=== PATIENT | female | born 1985 | race Caucasian/White ===

== ENCOUNTER → 2016-12-23 | Outpatient (CLI) | payer SELFPAY | LOC: WI 10:22 | PROVIDERS: ATTEND Family Medicine | DX: R10.9 Unspecified abdominal pain (principal); R10.2 Pelvic and perineal pain; Z90.710 Acquired absence of both cervix and uterus | CPT/HCPCS: 76700; 76856 ==

== ENCOUNTER 2017-01-16 11:24 | Emergency (ER) | payer SELFPAY ==
[2017-01-16] MEDS ORDERED: ACETAMINOPHEN 325 MG TABLET PO ONE (11:37)
[2017-01-16] MEDS ORDERED: IBUPROFEN 600 MG TABLET PO ONE (12:00)
[2017-01-16] MEDS ORDERED: LIDOCAINE 5% (700 MG) TRANSDERMAL ADH..PATCH TP ONE ×3 (12:00→15:00)
--- NOTE | 2017-01-16 12:03 | ER Document Report ---
ED Medical Screen (RME) - General Chief Complaint: Abdominal Pain Stated Complaint: RIGHT FLANK/ABDOMINAL PAIN Notes: Patient presents with intermittent right flank pain for the past several years which generally resolves after application of heat to the area but has not resolved today. She recently saw her primary care doctor for the same concern and had an abdominal ultrasound done which was notably unremarkable. In triage today she appears to be in significant discomfort, hunched over and appears nauseated. I have greeted and performed a rapid initial assessment of this patient. A comprehensive ED assessment and evaluation of the patient, analysis of test results and completion of medical decision making process will be conducted by an additional ED providers. TRAVEL OUTSIDE OF THE [place] IN LAST 30 DAYS: No - Related Data Allergies/Adverse Reactions: acetaminophen [From Vicodin] Allergy (Verified 01/16/17 11:34) hydrocodone [From Vicodin] Allergy (Verified 01/16/17 11:34) latex Allergy (Verified 01/16/17 11:34) metronidazole Allergy (Verified 01/16/17 11:34) prednisone Allergy (Verified 01/16/17 11:34) Sulfa (Sulfonamide Antibiotics) Allergy (Verified 01/16/17 11:34) Past Medical History - Social History Chew tobacco use (# tins/day): No Frequency of alcohol use: None Drug Abuse: None Neurological Medical History: Reports: Hx Migraine Renal/ Medical History: Denies: Hx Peritoneal Dialysis Psychiatric Medical History: Reports: Hx Depression Past Surgical History: Reports: Hx Hysterectomy - Immunizations Hx Diphtheria, Pertussis, Tetanus Vaccination: No Physical Exam - Vital signs Vitals: Temp Pulse Resp BP Pulse Ox 97.6 F 76 20 130/84 H 99 01/16/17 11:33 01/16/17 11:33 01/16/17 11:33 01/16/17 11:33 01/16/17 11:33 Notes: PHYSICAL EXAMINATION: GENERAL: Appears uncomfortable, in mild distress HEAD: Atraumatic, normocephalic. EYES: Pupils equal round and reactive to light, extraocular movements intact, sclera anicteric, conjunctiva are normal. ENT: nares patent, oropharynx clear without exudates. Moist mucous membranes. NECK: Normal range of motion, supple without lymphadenopathy LUNGS: Breath sounds clear to auscultation bilaterally and equal. No wheezes rales or rhonchi. HEART: Regular rate and rhythm without murmurs ABDOMEN: Soft, nontender, normoactive bowel sounds. No guarding, no rebound. Right flank pain to palpation EXTREMITIES: Normal range of motion, no pitting or edema. No cyanosis. NEUROLOGICAL: No focal neurological deficits. Moves all extremities spontaneously and on command. PSYCH: Normal mood, normal affect. SKIN: Warm, Dry, normal turgor, no rashes or lesions noted. Course - Vital Signs Vital signs: Temp Pulse Resp BP Pulse Ox 97.6 F 76 20 130/84 H 99 01/16/17 11:33 01/16/17 11:33 01/16/17 11:33 01/16/17 11:33 01/16/17 11:33
--- NOTE | 2017-01-16 12:52 | ER Document Report ---
ED General - General Chief Complaint: Abdominal Pain Stated Complaint: RIGHT FLANK/ABDOMINAL PAIN Mode of Arrival: Ambulatory Information source: Patient Notes: Patient presents to the emergency department with complaints of right sided flank pain. Patient reports she's had this pain that comes and goes for over a year. She reports she's recently lost over 40 pounds in the past 2 month without trying. She reports she's been eating drinking as normal. Denies rectal bleeding. She was evaluated by Dr. Copeland for a renal and abdominal ultrasound which were both negative. She reports she was referred to GI but has not gone because she cannot afford it yet. Patient denies other symptoms such as fever vomiting. She denies pain with void, denies urinary frequency, denies vaginal discharge. She reports diarrhea this a.m. 1. She denies trauma. Patient reports the pain is sometimes relieved by applying heat but this morning it was not helping. TRAVEL OUTSIDE OF THE [place] IN LAST 30 DAYS: No - HPI Onset: Other Onset/Duration: Waxing and waning Quality of pain: Achy Severity: Severe Pain Level: 5 Associated symptoms: None Exacerbated by: Denies Relieved by: Denies Similar symptoms previously: Yes Recently seen / treated by doctor: Yes - Related Data Allergies/Adverse Reactions: acetaminophen [From Vicodin] Allergy (Verified 01/16/17 11:34) hydrocodone [From Vicodin] Allergy (Verified 01/16/17 11:34) latex Allergy (Verified 01/16/17 11:34) metronidazole Allergy (Verified 01/16/17 11:34) prednisone Allergy (Verified 01/16/17 11:34) Sulfa (Sulfonamide Antibiotics) Allergy (Verified 01/16/17 11:34) Past Medical History - General Information source: Patient Last Menstrual Period: hyst - Social History Smoking Status: Never Smoker Chew tobacco use (# tins/day): No Frequency of alcohol use: None Drug Abuse: None Family History: DM - father, Hypertension - father, Malignancy - mgf-lung cancer Patient has suicidal ideation: No Patient has homicidal ideation: No Neurological Medical History: Reports: Hx Migraine Renal/ Medical History: Denies: Hx Peritoneal Dialysis Psychiatric Medical History: Reports: Hx Depression Past Surgical History: Reports: Hx Hysterectomy - Immunizations Hx Diphtheria, Pertussis, Tetanus Vaccination: No Review of Systems - Review of Systems Notes: Review HPI for review of systems., All other systems negative Physical Exam - Vital signs Vitals: Temp Pulse Resp BP Pulse Ox 97.6 F 76 20 130/84 H 99 01/16/17 11:33 01/16/17 11:33 01/16/17 11:33 01/16/17 11:33 01/16/17 11:33 - Notes Notes: PHYSICAL EXAMINATION: GENERAL: Well-appearing nontoxic looking, calm, reports pain decreased HEAD: Atraumatic, normocephalic. EYES: Pupils equal round extraocular movements intact, sclera anicteric, conjunctiva are normal. ENT: nares patent Moist mucous membranes. NECK: Normal range of motion, supple without lymphadenopathy LUNGS: CTAB and equal. No wheezes rales or rhonchi. HEART: Regular rate and rhythm without murmurs ABDOMEN: Soft, denies tenderness. No guarding, no rebound BACK: Right flank ttp, no ecchymois, no swelling/warmth/erythema EXTREMITIES: Normal range of motion, no pitting edema. No cyanosis. NEUROLOGICAL: Cranial nerves grossly intact. Normal sensory/motor exams. PSYCH: Normal mood, normal affect. SKIN: Warm, Dry, normal turgor, no rashes or lesions noted Course - Re-evaluation Re-evalutation: 01/16/17 15:20 Patient reported she has lost 40 pounds in the past month. Unable to find previous weight to confirm this. Patient was updated on labs white count 16. Patient reports lidoderm patch helped with her pain. CT limited ordered for possible kidney stone. 01/16/17 16:[address] blankenship regarding WBC 16.7, CT,Renal calculus, he advised antibx, pain control. Big concern is patients report of weight loss in the past month. She has a pcp, has been referred to GI. Pt reports she is trying to come up with the money. Will leave her name with jack quiñones computer operations manager to ascertain if she can find any help for her. Pt reports he lost 40 lbs 2 months ago when she was going through a stressful time in her life. She reports she lost 4 pounds this past week. - Vital Signs Vital signs: Temp Pulse Resp BP Pulse Ox 98.2 F 80 16 124/72 99 01/16/17 17:33 01/16/17 17:33 01/16/17 17:33 01/16/17 17:33 01/16/17 17:33 - Laboratory Result Diagrams: 01/16/17 13:47 01/16/17 13:47 Laboratory results interpreted by me: 01/16/17 01/16/17 01/16/17 12:23 13:47 13:47 WBC 16.7 H Seg Neutrophils % 85.8 H Lymphocytes % 9.0 L Absolute Neutrophils 14.3 H Sodium 145.4 H Chloride 112 H Carbon Dioxide 16 L Direct Bilirubin Urine Blood SMALL H 01/16/17 13:47 WBC Seg Neutrophils % Lymphocytes % Absolute Neutrophils Sodium Chloride Carbon Dioxide Direct Bilirubin 0.6 H Urine Blood - Diagnostic Test Radiology reviewed: Image reviewed, Reports reviewed - CT/CT LTD RENAL STONE PROTOCOL ON IMPRESSION: No renal calculi are identified. A small calcific density is identified in the right pelvis on image number 68 as noted above suspicious for a distal ureteric calculus. There is hydronephrosis of the right kidney and fullness of the right ureter extending into the pelvis. It is difficult to follow the course of the more distal right ureter as noted above. Other findings as noted above Discharge - Discharge Clinical Impression: Right flank pain, Elevated blood pressure reading, Renal calculus, Weight loss , abnormal Condition: Stable Disposition: HOME, SELF-CARE Instructions: Gastroenterology, Oral Narcotic Medication ([facility]), Flomax ([facility]), Trimethoprim-Sulfa ([facility]) Additional Instructions: *You have been evaluated for flank pain, kidney stones, abnormal weight loss, elevated blood pressure reading *Take medication as prescribed *Apply lidoderm patches as indicated *Follow up with Dr Copeland Thursday *Follow-up with GI and urology within one week *Return to ED for worsening condition, changes, needs, increased pain, fever *Return to ED if not better in 24 hours Monitor your blood pressure. Your blood pressure was elevated today. This may be because you were anxious, in pain or because you need medication. It is important to follow up with your primary care provider for full evaluation. Prescriptions: Lidocaine [Lidoderm 5% (700 mg) Transdermal Patch] 1 patch TP DAILY #30 adh..patch Oxycodone HCl/Acetaminophen [Percocet 5-325 mg Tablet] 2 tab PO ASDIR PRN #15 tab PRN Reason: Tamsulosin HCl [Flomax 0.4 mg Cap.sr] 0.4 mg PO DAILY #7 cap.sr.24h Forms: Elevated Blood Pressure Referrals: CHIN COPELAND MD [Primary Care Provider] - 01/19/17 [facility] [Provider Group] - Follow up in 1 week [facility] [Provider Group] - Follow up in 1 week
[2017-01-16 13:00] LABS: APPEARANCE,URINE CLOUDY; BILIRUBIN,URINE NEGATIVE (NEGATIVE); CALCIUM OXALATE CRYSTALS,URINE MODERATE /HPF; GLUCOSE, URINE NEGATIVE (NEGATIVE); KETONES,URINE NEGATIVE (NEGATIVE); LEUKOCYTE ESTERASE,URINE NEGATIVE (NEGATIVE); NITRITE,URINE NEGATIVE (NEGATIVE); PROTEIN,URINE NEGATIVE (NEGATIVE); URINE SPECIFIC GRAVITY 1.017; UROBILINOGEN,URINE NEGATIVE mg/dL (<2.0)
[2017-01-16 14:11] LABS: ANION GAP 17 (5-19); BLOOD UREA NITROGEN 15 mg/dL (7-20); CALCIUM 9.4 mg/dL (8.4-10.2); CARBON DIOXIDE 16 mmol/L (22-30); CHLORIDE 112 mmol/L (98-107); CREATININE RESULT 1.01 mg/dL (0.52-1.25); GLUCOSE 89 mg/dL (75-110); POTASSIUM 3.7 mmol/L (3.6-5.0); SODIUM 145.4 mmol/L (137-145)
[2017-01-16 14:28] LABS: ABSOLUTE BASOPHILS # (AUTO) 0.1 10^3/uL (0.0-0.2); ABSOLUTE LYMPHOCYTES (AUTO) 1.5 10^3/uL (0.5-4.7); ABSOLUTE MONOCYTES (AUTO) 0.8 10^3/uL (0.1-1.4); ABSOLUTE NEUT (AUTO) 14.3 10^3/uL (1.7-8.2); BASOPHILS % (AUTO) 0.4 % (0-2); EOSINOPHILS % (AUTO) 0.1 % (0-6); HEMATOCRIT 39.4 % (36.0-47.0); HGB HCT DIFFERENCE -0.4; MEAN CORPUSCULAR HEMOGLOBIN 29.5 pg (27.0-33.4); MEAN CORPUSCULAR VOLUME 89 fl (80-97); MONOCYTES % (AUTO) 4.7 % (3-13); RED BLOOD COUNT 4.41 10^6/uL (3.72-5.28); RED CELL DISTRIBUTION WIDTH 12.3 % (11.5-14.0); SEGMENTED NEUTROPHILS % (AUTO) 85.8 % (42-78); WHITE BLOOD COUNT 16.7 10^3/uL (4.0-10.5)
[2017-01-16 14:34] LABS: ALANINE AMINOTRANSFERASE 30 U/L (9-52); ALBUMIN 4.5 g/dL (3.5-5.0); ALKALINE PHOSPHATASE 89 U/L (38-126); ASPARTATE AMINO TRANSFERASE 19 U/L (14-36); BILIRUBIN,DIRECT 0.6 mg/dL (0.0-0.4); BILIRUBIN,TOTAL 1.3 mg/dL (0.2-1.3); TOTAL PROTEIN 7.7 g/dL (6.3-8.2)
[2017-01-16] MEDS ORDERED: TAMSULOSIN HCL 0.4 MG CAP.SR.24H PO ONE (16:41)
[2017-01-16 17:34] VITALS: BP 124/72
== END 2017-01-16 17:34 | disposition home or self-care (01) ==
LOC: ER 11:24
DX: R10.9 Unspecified abdominal pain (principal); R03.0 Elevated blood-pressure reading, without diagnosis of hypertension; N20.0 Calculus of kidney; R63.4 Abnormal weight loss; R19.7 Diarrhea, unspecified; Z88.6 Allergy status to analgesic agent; Z91.040 Latex allergy status; Z88.2 Allergy status to sulfonamides; Z90.710 Acquired absence of both cervix and uterus
CPT/HCPCS: 36415; 76380; 80048; 80076; 81001; 83690; 85025; 87086; 99284

== ENCOUNTER → 2017-01-22 | Outpatient (CLI) | payer OTHER ==
[2017-01-22 14:00] LABS: ANION GAP 14 (5-19); BLOOD UREA NITROGEN 15 mg/dL (7-20); CALCIUM 9.4 mg/dL (8.4-10.2); CARBON DIOXIDE 19 mmol/L (22-30); CHLORIDE 111 mmol/L (98-107); CREATININE RESULT 0.83 mg/dL (0.52-1.25); GLUCOSE 73 mg/dL (75-110); POTASSIUM 4.3 mmol/L (3.6-5.0); SODIUM 144.2 mmol/L (137-145)
== END ==
LOC: CCC 12:26
DX: Z00.01 Encounter for general adult medical examination with abnormal findings (principal)
CPT/HCPCS: 36415; 80048

== ENCOUNTER 2019-02-09 09:20 | Emergency (ER) | payer SELFPAY ==
[2019-02-09 09:26] VITALS: BP 125/85
--- NOTE | 2019-02-09 10:30 | ER Document Report ---
HPI - HPI Patient complains to provider of: rash Time Seen by Provider: 02/09/19 09:52 Onset: This morning Onset/Duration: Sudden Quality of pain: No pain Pain Level: 1 - itchy Context: Patient presents emergency department for complaints of a rash to her bilateral hip areas. She reports symptoms started this morning. She reports she has had this rash come and go since last April at least 6 times. She is reports it started when she lived in [place] she moved back to [place] in May. She reports it itches. She takes Benadryl and goes back to sleep and the rash usually goes away. She does not have insurance so she is not able to follow-up with her primary care provider and switcher. She denies other symptoms such as fever vomiting diarrhea. Associated Symptoms: None Exacerbated by: Denies Relieved by: Denies Similar symptoms previously: Yes Recently seen / treated by doctor: No - REPRODUCTIVE Reproductive: DENIES: : Past Medical History - General Information source: Patient - Social History Smoking Status: Unknown if Ever Smoked Cigarette use (# per day): No Frequency of alcohol use: None Drug Abuse: None Occupation: apartment maintenance manager business case analyst Family History: Malignancy, DM, Hypertension, Reviewed & Not Pertinent Patient has suicidal ideation: No Patient has homicidal ideation: No Pulmonary Medical History: Reports: Hx Asthma Neurological Medical History: Reports: Hx Migraine Renal/ Medical History: Denies: Hx Peritoneal Dialysis Psychiatric Medical History: Reports: Hx Depression Past Surgical History: Reports: Hx Hysterectomy - Immunizations Hx Diphtheria, Pertussis, Tetanus Vaccination: No Vertical Provider Document - CONSTITUTIONAL Agree With Documented VS: Yes Exam Limitations: No Limitations General Appearance: WD/WN, No Apparent Distress - INFECTION CONTROL TRAVEL OUTSIDE OF THE [place] IN LAST 30 DAYS: No - HEENT HEENT: Atraumatic, Normocephalic - NECK Neck: Normal Inspection, Supple. negative: Lymphadenopathy-Left, Lymphadenopathy-Right - RESPIRATORY Respiratory: Breath Sounds Normal, No Respiratory Distress - CARDIOVASCULAR Cardiovascular: Regular Rate - BACK Back: Normal Inspection - MUSCULOSKELETAL/EXTREMETIES Musculoskeletal/Extremeties: RAYNE DOBSON - NEURO Level of Consciousness: Awake, Alert, Appropriate - DERM Integumentary: Warm, Dry, Rash Adult Front & Back Diagram: 1 - bilateral hips with flat scattered erythemic macules, no pustule/no vesicles/no warmth 2 - bilateral hips with flat scattered erythemic macules, no pustule/no vesicles/no warmth Course - Re-evaluation Re-evalutation: 02/09/19 10:30 Discussed rash with patient for a long time. Patient denies new lotions new soaps denies anything that would be causing the rash. Encouraged her to follow- up with an switcher to find out what she is responding to. In the meantime instructed on Benadryl cool showers avoid itching. She verbalized understand all instructions. She was also instructed to return to ED if she has trouble breathing she verbalized understanding. Dictation of this chart was performed using voice recognition software; therefore, there may be some unintended grammatical errors. - Vital Signs Vital signs: Temp Pulse Resp BP Pulse Ox 98.0 F 92 16 125/85 99 02/09/19 09:24 02/09/19 09:24 02/09/19 09:24 02/09/19 09:24 02/09/19 09:24 Discharge - Discharge Clinical Impression: Rash Allergic reaction Qualifiers: Encounter type: initial encounter Qualified Code(s): T78.40XA - Allergy, unspecified, initial encounter Condition: Stable Disposition: HOME, SELF-CARE Instructions: Acute Allergic Reaction ([facility]), Use of Diphenhydramine Additional Instructions: *You have been treated for a chronic allergic reaction rash *Take benadryl as indicated *Monitor your skin for worsening rash *Avoid hot showers take cool showers to minimize itch avoid itching *Follow up with an switcher for evaluation *Return to ED concerns, difficulty breathing, worsening rash, worsening condition, changes, needs Monitor your blood pressure. Your blood pressure was elevated today. This may be because you were anxious, in pain or because you need medication. It is important to follow up with your primary care provider for full evaluation. Forms: Elevated Blood Pressure
== END 2019-02-09 10:35 | disposition home or self-care (01) ==
LOC: ER 09:20
DX: T78.40XA Allergy, unspecified, initial encounter (principal); R21 Rash and other nonspecific skin eruption; L29.8 Other pruritus; X58.XXXA Exposure to other specified factors, initial encounter; J45.909 Unspecified asthma, uncomplicated
CPT/HCPCS: 99282